=== PATIENT | female | born 1980 | race Caucasian/White ===

== ENCOUNTER 2018-04-15 09:02 | Observation (INO) ==
[2018-04-15] MEDS ORDERED: Chlorhexidine Gluconate 2% 1 Pack (2 Cloths) TOPICAL ONE (09:30)
[2018-04-15] MEDS ORDERED: Metoprolol Tartrate 25 MG Tablet PO ONE (09:30)
[2018-04-15] MEDS ORDERED: Sodium Chlor 0.9% Inj 500 ML IV.CONT ONE (09:30)
[2018-04-15] MEDS ORDERED: Chlorhexidine 4% Topical 120 APPLIC/120 ML Bottle TOPICAL SCH (09:45)
[2018-04-15] MEDS ORDERED: Vancomycin Inj 1,000 MG in Sodium Chlor 0.9% Inj 250 ML IV.SIG SCH (10:00)
[2018-04-15] MEDS ORDERED: fentaNYL Citrate Inj 250 MCG/5 ML Ampul ONE (10:35)
[2018-04-15] MEDS ORDERED: Sodium Chlor 0.9% Inj 50 ML ONE (10:42)
[2018-04-15] MEDS ORDERED: Clindamycin Inj 900 MG/6 ML Vial ONE (10:56)
[2018-04-15] MEDS ORDERED: Bupivacaine/Epinephrine Inj 0.25% 50 ML Vial ONE (11:09)
[2018-04-15] MEDS ORDERED: Clindamycin 900 mg/NS Premix 900 MG/50 ML PIGGYBACK IV.SIG SCH (11:30)
--- NOTE | 2018-04-15 14:14 | P.OP ---
Date of procedure: 04/15/18 Procedure: 1. Posterior cervical instrumentation for purposes of fusion C5-C6 and C6-C7 2. Posterior cervical arthrodesis C5-C6 and C6-C7 3. Posterior iliac crest autograft, from separate incision 4. Placement of allograft Implants: 1. 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 Patient has had persistent debilitating neck pain as a result with evidence of hardware failure anteriorly and pseudoarthrosis. Options of management were discussed with the patient. Risks, benefits, alternatives were discussed with the patient. At this time she is consented to the procedure. Description of procedure: Patient was brought back to the operating room where general anesthesia then ensued. Patient was then carefully positioned prone on a Martínez table with all bony prominences well padded. The arms were placed along the side and the shoulders taped distally to allow adequate visualization of the cervical spine. AP and lateral radiographic images were used to identify the proper levels, C5-6 and C6-7 for appropriate exposure for the purposes of cervical fusion. A timeout was performed to verify correct patient , side, site and procedure to be performed. Preoperative antibiotics were given within 1 hour of incision. A small incision was made over the right posterior iliac spine. A series of cores of bone graft were harvested with a special bone harvesting device. The cancellus bone graft was then taken to the back table and mixed with stem cell, NuCel bone graft for the fusion portion of the case. Using AP and lateral radiographs, skin markings were made. On the right side an 18-gauge spinal needle was then placed down to the proper level, C5-6. A small left-sided incision was made. I then used the Unocoin DTRAX system. Exposure was performed down to the proper level at C5-6. Under visualization an access chisel was placed onto the C5-6 level. This was confirmed under radiographs to be in appropriate position. This was then placed down into the facet joint at C5-6. A decorticating device was then utilized to decorticate the bone above and below the facet joint including the lateral mass. A retractor was then placed down the access chisel allowing exposure to the joint and exposure to the articular cartilage. A drilling system was then utilized to remove all cartilage from the facet joint and this was followed by a rasp. On the back table, NuCel stem cells were then mixed with the autologous iliac crest bone graft. A combination of both of these were then placed into the appropriate cage. The cage then was impacted into the C5-6 facet on the left and verified to be in appropriate position on AP and lateral radiographs. A transfixation screw was then placed into the cage and verified to have excellent fixation in the facet joint. The backside of the cage was filled with additional bone graft and tamped into position along the lateral masses. The retractor was removed. On the right side, a separate incision was made. Using the same sequence of access to the same level on the right C5-6 facet. An incision was made along visualization for placement of an access chisel to the right C5-6 facet joint and verified to be in appropriate position on AP and lateral radiographs. This was followed by decortication with excellent visualization. A final retractor was positioned allowing access and visualization to the facet joint. The facet joint was then drilled and rasped. The joint was prepared and a space created for the cage. The cage was filled on the back table with bone graft and then impacted into appropriate position. A transfixation screw was placed and radiographs, AP and lateral, were found to show appropriate positioning. Additional bone graft was then placed along the posterior aspect of the cage and the facet joint along the lateral mass and tamped into position. The retractor was then removed. The same technique was then utilized at the C6 level on the right side first followed by the left side. This was performed through the same incision which allowed visualization and placement of the access chisel into the right C6-7 facet joint. Again this was verified to be in appropriate position on AP and lateral radiographs. This was followed by decortication with excellent visualization. A final retractor was positioned along access and visualization of the facet joint. The facet joint was then drilled and rasped. The joint was prepared and a space created for the cage. The cage was filled on the back table with bone graft and impacted into appropriate position at the right C6-7 facet joint. A transfixation screw was placed in radiographs both AP and lateral were found to show appropriate positioning. Additional bone graft was then placed along the posterior aspect of the cage and the facet joint along the lateral mass and tamped into position. The retractor was then removed. Again, this same technique was performed on the left C6-7 facet joint. The access chisel was positioned in appropriate position followed by decortication with excellent visualization of the C6-7 left facet joint. A retractor was positioned to allow access and visualization of the facet joint. The facet joint was then drilled and rasped. The joint was prepared and a space created for the cage. The cage was filled on the back table with bone graft and impacted into appropriate position at the left C6-7 facet joint. A transfixation screw was placed in radiographs both AP and lateral were found to show appropriate positioning. Additional bone graft was then placed along the posterior aspect of the cage and the facet joint along the lateral mass and tamped into position. The retractor was then removed. The wounds were thoroughly irrigated. The deep tissue closed with Vicryl suture and the skin closed with nylon. Sterile dressings were applied. Patient was then carefully positioned supine back on the hospital bed and awoke from general anesthesia. A cervical collar was placed. It should be noted, the patient remained hemodynamically stable throughout the entire case. Disposition: Patient was instructed to wear her cervical collar at all times.
[2018-04-15] MEDS ORDERED: Post-op Orders (for Pharmacy) OTHER STA (14:17)
[2018-04-15] MEDS ORDERED: *morphine SULFATE 4 MG/ML PERIprocedure ONLY ONE ×2 (15:00→15:22)
[2018-04-15] MEDS ORDERED: Morphine Inj 4 MG/ML Vial IV.PUSH PRN (15:00)
[2018-04-15] MEDS ORDERED: Aluminum/Magnesium/Simethacone Susp 30 ML UDC PO PRN (15:00)
[2018-04-15] MEDS ORDERED: *Ondansetron Inj 4 MG/2 ML Vial PERIprocedural Use ONLY ONE (15:22)
[2018-04-15] MEDS ORDERED: HYDROmorphone PF Inj 0.5 MG/0.5 ML Syringe ONE ×2 (15:40→16:00)
[2018-04-15] MEDS ORDERED: *Promethazine Inj 25 MG/ML Vial PERIprocedural use ONLY ONE (15:41)
--- NOTE | 2018-04-15 15:41 | XR ---
EXAM DATE: 04/15/2018 3:14 PM EST AGE/SEX: 37 years / Female INDICATIONS: Posterior cervical fusion. CLINICAL DATA: This is the patient's initial encounter. Patient reports that signs and symptoms have been present for 1 day and indicates a pain score of Nonresponsive. MEDICAL/SURGICAL HISTORY: None. None. COMPARISON: No prior exams available for comparison. FINDINGS: AP and lateral views of the cervical spine obtained in the operating room documents 3 level anterior plate and screw fixation. Lateral view technique is suboptimal making level localization challenging. Material has also been placed at the facet joints at 2 adjacent levels. CONCLUSION: Spot images, as above. Electronically signed by: Praveen Roldan MD Board Certified Radiologist 04/15/2018 3:40 PM EST
[2018-04-15] MEDS ORDERED: Bisacodyl 10 MG Supp RECTAL PRN (16:00)
[2018-04-15] MEDS: Clindamycin 600 mg/NS Premix 600 MG/50 ML PIGGYBACK IV.SIG SCH (18:57)
[2018-04-15] MEDS ORDERED: traZODone 50 MG Tablet PO SCH (21:00)
[2018-04-15] MEDS: Senna/Docusate Sodium 8.6/50 MG Tablet PO SCH (21:10)
[2018-04-15] MEDS: clonazePAM 1 MG Tablet PO SCH (21:10)
[2018-04-15] MEDS: Multivitamin/Minerals Therapeutic Tablet PO SCH (21:10)
[2018-04-16] MEDS: Clindamycin 600 mg/NS Premix 600 MG/50 ML PIGGYBACK IV.SIG SCH ×2 (00:51→05:49)
--- NOTE | 2018-04-16 07:36 | P.PNOP ---
Subjective Interval history: Patient resting comfortably. Reports nausea overnight. She states this is mildly improved this morning. Reports posterior neck aches and pains and muscle spasms. Relatively well controlled with [place] and tizanidine Physical Exam Vital signs: Vital Signs 04/15/18 09:54 04/15/18 14:28 04/15/18 14:30 Temperature 99.5 F 98.3 F Pulse Rate 88 106 H 105 H Respiratory Rate 12 12 Blood Pressure 126/79 130/74 137/73 Pulse Oximetry 97 98 100 04/15/18 14:45 04/15/18 15:00 04/15/18 15:07 Temperature Pulse Rate 100 H 101 H Respiratory Rate 12 12 15 Blood Pressure 139/75 136/73 Pulse Oximetry 98 100 04/15/18 15:15 04/15/18 15:24 04/15/18 15:30 Temperature Pulse Rate 98 H 98 H Respiratory Rate 12 22 12 Blood Pressure 137/79 113/75 Pulse Oximetry 99 99 04/15/18 15:45 04/15/18 16:00 04/15/18 16:15 Temperature 97.6 F Pulse Rate 99 H 99 H 99 H Respiratory Rate 22 12 12 Blood Pressure 134/85 133/80 126/73 Pulse Oximetry 98 99 99 04/15/18 16:35 04/15/18 19:00 04/15/18 23:46 Temperature 97.6 F 97.6 F 97.9 F Pulse Rate 99 H 96 H 103 H Respiratory Rate 18 18 18 Blood Pressure 134/81 113/67 135/65 Pulse Oximetry 94 L 97 94 L 04/16/18 03:41 Temperature 97.9 F Pulse Rate 84 Respiratory Rate 18 Blood Pressure 118/60 Pulse Oximetry 96 Intake & Output 04/15/18 04/16/18 04/16/18 18:59 06:59 18:59 Intake Total 750 / 750 460 / 460 Output Total 150 / 150 Balance 600 / 600 460 / 460 Weight 121.7 kg 121.7 kg Intake: IV 750 / 750 100 / 100 LR 1000 mL Inj 1,000 ML @ 30 400 / 400 mls/hr IV.CONT .Q24H ONE Rx#: [id number] Cleocin 600 mg/NS Premix 600 mg 100 / 100 In 50 ml @ 100 mls/hr IV.SIG Q6H [facility] Rx#:[id number] Cleocin Inj 900 MG In NS Inj 100 / 100 100 ML @ 100 mls/hr IV.SIG [employer] [facility] Rx#:[id number] Vancomycin Inj 1,000 MG In NS 250 / 250 Inj 250 ML @ 250 mls/hr IV.SIG [employer] [facility] Rx#:[id number] Oral 360 / 360 Output: Estimated Blood Loss 50 / 50 Urine Amount (Catheter) 100 / 100 Indwelling Urethral Catheter 100 / 100 Other: # Voids 1 3 # Bowel Movements 0 Weight On Admission 121.7 kg Narrative: Awake alert no acute distress. Cervical collar in place 5 out of 5 strength throughout bilateral upper extremities. No significant numbness or tingling. Brisk cap refill - Urinary Catheter Management Indwelling Urethral Catheter Cath placed during this visit: yes, but has since been removed by the nurse Reason for continuing: Hourly intake/output Insertion date: 04/15/18 Insertion time: 11:52 Removal date: 04/15/18 Removal time: 14:10 Results - Imaging Impressions Cervical Spine X-Ray 04/15/18 00:00 CONCLUSION: Spot images, as above. Assessment and Plan - Assessment and Plan 37-year-old female, postop day 1 status post C5-6, C6-7 posterior cervical fusion 1. Cervical collar at all times. 2. Dressing changes as needed. If dressings remain clean and dry may stay in place until follow-up. Should these become saturated or dirty, may change dressing daily and as needed 3. Mobilization as tolerated 4. Plan for discharge home today. [employer] Prescription Drug Monitoring Database has been queried and verified prior to prescribing the controlled substance. Acute pain exception: This patient has normal, predicted, physiological, and time limited response to an adverse mechanical stimulus associated with surgery , trauma, or acute illness as described in my notes. There is a lack of alternative treatment options other than to include the prescribed narcotic treatment for this condition.
[2018-04-16] MEDS: Senna/Docusate Sodium 8.6/50 MG Tablet PO SCH (08:23)
[2018-04-16] MEDS: clonazePAM 1 MG Tablet PO SCH (08:23)
[2018-04-16] MEDS: Multivitamin/Minerals Therapeutic Tablet PO SCH (08:23)
[2018-04-16 08:28] VITALS: O2SAT 97
[2018-04-16] MEDS ORDERED: FLUoxetine 20 MG Capsule PO SCH (09:00)
[2018-04-16] MEDS ORDERED: Pantoprazole Sodium 20 MG DR Tablet PO SCH (09:00)
[2018-04-16 11:54] VITALS: BP 105/57; PULSE 82; RESP 18; TEMP 97.6
== END 2018-04-16 15:29 | disposition home or self-care (01) ==
LOC: HSDI 09:02 → HSDC 09:02 → EDSTATUS 11:30 → N06 16:29
PROVIDERS: ADMIT Orthopaedic Surgery Orthopaedic Surgery of the Spine; ATTEND Orthopaedic Surgery Orthopaedic Surgery of the Spine